=== PATIENT | female | born 1955 | race Caucasian/White ===

== ENCOUNTER 2023-05-05 12:02 | Day surgery (SDC) | payer MEDICARE, SELFPAY ==
--- NOTE | 2023-05-05 12:16 | FL_ITS ---
The [address] [address] Patient Name: ALICIA WRIGTH MRN: [facility]:[id number] date: 1955 Sex: F Assigned Patient Location: MRI Current Patient Location: Accession/Order Number: [id number] Exam Date: 05/05/2023 12:30 Report Date: 05/05/2023 14:20 At the request of: DELANO IZAGUIRRE Procedure: FL arthrogram hip LT EXAMINATION: FL arthrogram hip LT HISTORY: Acute left hip pain M25.552 COMPARISON: No relevant comparison available. TECHNIQUE: An arthrogram was performed under fluoroscopic guidance using non-ionic contrast material in the usual sterile manner after obtaining informed consent. Standard level fluoroscopic mode of operation utilized. FINDINGS: JOINT: Left hip NEEDLE: 25 gauge, 3.5 spinal needle. MEDICATION: 2cc buffered 1% lidocaine for subcutaneous anesthesia 2cc Omnipaque-240 iodinated contrast to visualize the joint space 40 mg Depo-Medrol and one mL, 3 mL's of 0.5% bupivacaine, 3 cc of sterile saline injected into the joint space. TECHNIQUE: Anterior approach with prior localization of the femoral artery. A single stick was successful in gaining access to the joint space. CLINICAL: 6 out of 10 pain before the procedure. 4 out of 10 pain after the procedure COMPLICATIONS: None. OTHER: Negative. PLEASE ALSO SEE THE SEPARATE ARTHROGRAM PROCEDURE REPORT. FL/FL arthrogram hip LT IMPRESSION: Technically successful left hip diagnostic arthrogram Electronically authenticated by: SILVESTRE PALOMO Date: 05/05/2023 14:20
--- NOTE | 2023-05-05 12:16 | MR_ITS ---
[address] [address] Patient Name: ALICIA WRIGHT MRN: [facility]:[id number] date: 1955 Sex: F Assigned Patient Location: MRI Current Patient Location: MRI Accession/Order Number: [id number] Exam Date: 05/05/2023 13:30 Report Date: 05/08/2023 11:37 At the request of: DELANO IZAGUIRRE Procedure: MR arthrogram hip STUDY: MR arthrogram hip HISTORY: Acute hip pain M25.552 TECHNIQUE: Multiplanar, multisequence MRI imaging of the hip was performed after the fluoroscopically guided administration of intra-articular gadolinium contrast (performed and dictated separately). COMPARISON: Fluoroscopic left hip arthrogram images 05/05/2023. FINDINGS: Osseous structures: No fracture or stress fractures. No osteonecrosis of femoral heads. Normal morphology of the femoral heads and acetabulum. No diffuse marrow signal abnormality. Labrum: Intact. Cartilage: Within normal limits.. Soft tissues: Left iliopsoas, gluteus, and hamstring tendons are intact. Iliopsoas and trochanteric bursae are normal. Miscellaneous: SI joints are within normal limits. Pubic symphysis is unremarkable. No pelvic lymphadenopathy. Visualized pelvic structures are within normal limits. MR/MR arthrogram hip IMPRESSION: Negative exam. No labral tear or etiology for left hip pain demonstrated. Electronically authenticated by: JAMIE TRIANA Date: 05/08/2023 11:37
[2023-05-05] MEDS: LIDOCAINE HCL 20 ML, SODIUM BICARBONATE 2 MEQ INJ (13:20)
[2023-05-05] MEDS: TRIAMCINOLONE ACETONIDE 40 MG/ML VIAL INJ (13:20)
== END 2023-05-05 13:45 | disposition home or self-care (01) ==
LOC: MRI 12:07
PROVIDERS: Radiology Diagnostic Radiology; PCP Family Medicine; Visit Provider Personal Emergency Response Attendant
DX: M25.552 Pain in left hip (principal)
CPT/HCPCS: 27093; 73525; 73722; 77002; A9575; Q9967